=== PATIENT | male | born 1995 | race Caucasian/White ===

== ENCOUNTER 2021-06-19 22:14 | Outpatient (REF) | payer OTHER, SELFPAY ==
[2021-06-19 22:31] LABS: HCT 43.7 % (40.0-50.0); HGB 14.7 g/dL (13.5-17.5); MCH 29.9 pg (27.0-33.0); MCHC 33.6 % (32.0-36.0); MCV 88.8 fL (80-95); MPV 10.2 fL (8.0-11.0); Platelet Count 249 10^3/uL (130-400); RBC 4.92 10^6/uL (4.36-5.78); RDW 12.4 % (11.8-14.1); RDW-SD 40.3 fL; WBC 6.41 10^3/uL (4.4-10.8)
[2021-06-19 22:52] LABS: TSH (W/Ref FT4) 1.17 uIU/mL (0.36-3.74)
== END 2021-06-19 22:15 | disposition home or self-care (01) ==
LOC: NCHCN 22:14
PROVIDERS: PCP Physician Assistant Medical; Visit Provider Family Medicine
DX: F32.9 Major depressive disorder, single episode, unspecified (principal)
CPT/HCPCS: 85027; 84443

== ENCOUNTER 2022-09-03 11:21 | Emergency (ER) | payer MEDICAID, SELFPAY ==
[2022-09-03 11:29] VITALS: BP 136/82; PULSE 86; RESP 18; TEMP 36.4; O2SAT 100
--- NOTE | 2022-09-03 11:35 | W.ED.GENAD ---
Discharge Plan Disposition Patient Disposition: HOME Condition: Good Discharge Details Clinical Impression: Abrasion, corneal Primary Care Provider: Josh Li ED Provider: Cydney Benítez Discharge Instructions Additional Instructions: Your exam shows a corneal abrasion to the left eye. Please put 1cm of the erythromycin ointment into your left eye four times a day for the next 5 days. Tetanus updated today. [facility]. If ou develop fevers/chills, change in vision, discharge or other new/worsening symptoms, please seek care urgently once again. Referrals: [facility] [Outside] Josh Li [Primary Care Provider] - Discharge Data Discharge Date/Time-TO BE ENTERED AT DEPARTURE: 09/03/22 12:31 Medical Decision Making Patient is a pleasant 27 year old male presenting today with c/c of left eye FB sensation. He states that yesterday he was working with a [employer] saw, was wearing his normal corrective lenses, and a stick went under the glasses striking him in the eye. STates he washed the eye. Denies change in vision. Has had FB sensation and discomfort since. Unknown tetanus. States that after sleeping with bisi eye discomfort, eye was crusty this AM. Denies fevers/chills, visual change, persistent purulent drainage. On exam, patient appears nontoxic. No abnormality noted on initial exam, full ROM. No lesions to eye lid with eversion. Under slit lamp, with fluorosceine, able to visualize corneal abrasion as noted in PE section. Tetracaine completely releaved patient's discomfort and FB sensation. Negative Kaylene sign. No disruption in immediate field of vision. Discussed with patient. Will start on erythromycin ointmentt for coneal abrasion and concern for infection. Patient does not use contacts, has corrective lenses. 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 Tetanus unable to be found, will update today. Called [facility] who was able to see the patient in clinic tomorrow. Strict return precautions discussed. All of his question and concerns were addressed, he is in agreement with this plan. HPI General Date/Time Provider Initiated Documentation: 09/03/22 11:34. Limitations to Documentation: no limitations. Information obtained by: patient and RN notes reviewed. History of Present Illness 27 year old M presents to the emergency department with the chief complaint of left eye FB sensation, described as moderate, Quality is described as other (FB sensation, pain), and is localized to the eyes. Patient reports no radiation. Patient started experiencing this day(s) (1) and it has been constant. Medication improves symptom(s), (visine) No exacerbating factors reported . Patient notes no other symptoms.. Patient did receive the following treatments prior to arrival, other (visine) General Stated Complaint: EyeProblem GIN: 4 Review of Systems Constitutional Constitutional: Reports as per HPI, Denies chills, Denies fever(s) and Denies headache(s) Eyes Eyes: Reports as per HPI ENT Ears, Nose, Mouth, and Throat: Denies headache(s) Cardiovascular Cardiovascular: Reports as per HPI Respiratory Respiratory: Denies cough Integumentary/Breasts Skin/Breast: Reports as per HPI, Denies rash, Denies skin pain and Denies skin swelling Neurologic Neurologic: Denies headache(s) PFSH All Active Problems (Updated 09/03/22 @ 12:23 by TIGRE Elliott) Abrasion, corneal (Acute) Social History Smoking risk assessment performed?: No Drug use: Never Substance use type: does not use Do you feel safe at home: Yes Do you feel safe in your relationship?: Yes Exam Const General: cooperative, healthy appearing, comfortable, no acute distress, well developed and well groomed Nutritional Appearance: average body habitus and well nourished Orientation: alert, awake and oriented x3 HENMT Head: normal to inspection, normocephalic and atraumatic Ears: hearing grossly normal bilaterally and external ears normal General nose exam: external nose normal and nares normal Face and sinus: normal facial exam and face symmetric Mouth: oral mucosae normal, lip normal and moist mucous membranes Eyes General: appearance normal, both eyes and all related structures Visual Amin: normal visual amin by confrontation Alignment and Position: alignment normal and position normal Periorbital: periorbital findings normal Eyelids: eyelids normal (everted, no FB or laceration noted) Conjunctivae: conjunctivae normal Sclera: sclerae normal Cornea: corneas abnormal on the left fluorescein used and abrasion; without diffuse punctate uptake, without dendrites present, without edema, with no foreign body noted and without ulcerations and fluorescein used Pupils: PERRL EOM: EOM intact bilaterally Eyes/upper lids images: 1. corneal abrasion. Negative sidel sign. No retained FB. Resp Effort & Inspection: normal respiratory effort, able to speak in complete sentences and no respiratory distress Skin General skin exam: no rashes or lesions noted Neuro General: patient alert, patient awake and patient oriented x3 Cranial Nerves: CN's II-XI intact bilaterally Cognition: normal cognition Speech: speech normal Gait: normal gait Psych Appearance: grossly normal and well kempt Mental Status: mental status grossly normal Speech and Movement: speech and movement normal Course Vital Signs Vital signs: Vital Signs Temperature 36.4 C L 09/03/22 11:29 Pulse 86 09/03/22 11:29 Respiratory Rate 18 09/03/22 11:29 Blood Pressure 136/82 09/03/22 11:29 Pulse Oximetry 100 09/03/22 11:29 Temperature 36.4 C L 09/03/22 11:29 Temperature Source Temporal Artery Scan 09/03/22 11:29 Pulse 86 09/03/22 11:29 Respiratory Rate 18 09/03/22 11:29 Blood Pressure 136/82 09/03/22 11:29 Blood Pressure Position Sitting 09/03/22 11:29 Pulse Oximetry 100 09/03/22 11:29 Oxygen Delivery Method Room Air 09/03/22 11:29 Oxygen Flow Rate 0 09/03/22 11:29
[2022-09-03] MEDS: Tetracaine 0.5% 4 ML BTL OP (12:03)
[2022-09-03] MEDS: Fluorescein STRIPS 100/BOX 1 MG OP (12:03)
[2022-09-03] MEDS: Erythromycin Ophth Oint 3.5 GM TUBE OS (12:27)
== END 2022-09-03 12:31 | disposition home or self-care (01) ==
PROVIDERS: Emergency Provider Physician Assistant; PCP Family Medicine
DX: S05.02XA Injury of conjunctiva and corneal abrasion without foreign body, left eye, initial encounter (principal); Z23 Encounter for immunization; W22.8XXA Striking against or struck by other objects, initial encounter; Y93.89 Activity, other specified
CPT/HCPCS: 90471; 99283; 99284

== ENCOUNTER 2023-08-22 22:19 | Emergency (ER) | payer MEDICAID, SELFPAY ==
[2023-08-22 22:33] VITALS: BP 134/84; PULSE 82; RESP 16; TEMP 37.1; O2SAT 99
--- NOTE | 2023-08-22 22:47 | ED.GENADUL_ITS ---
Discharge Plan Disposition Patient Disposition: Home Condition: Good Discharge Details Chief Complaint: Headache Clinical Impression: Headache Primary Care Provider: Josh Li ED Provider: Louis Mendiola Home Meds and New Rx's Prescriptions: No Action No Known Home Meds Discharge Instructions Instructions: General Headache (ED) Additional Instructions: At this time your symptoms appear consistent with a migraine type headache. Please follow-up closely with your primary care provider for further discussion of potential nonemergent imaging. If you notice any worsening of your symptoms, or any new symptoms such as vomiting, diarrhea, fever, chills, shortness of breath, chest pain, numbness, weakness, or fainting , please return immediately to the emergency department for reevaluation. Please follow up with your primary care provider as soon as possible for reassessment and reevaluation. As always, it was a pleasure participating in your medical care today. Referrals: Josh Li [Primary Care Provider] - Medical Decision Making 28-year-old male with a past medical history of optical migraines who presents today for evaluation of headache. Patient states that he recently transition to night shifts, which is notably messed of his sleep schedule. He states that about a week or so ago he had an onset of one of his classic headaches that he used to get frequently in high school, started again a few hours ago. Usually goes away with NSAIDs and water, however it has not today. He describes it as a static like view in his right eye, with pain behind his eye that radiates to the back of his head and neck. Worse with bright lights. Improved by nothing. He denies any fever or chills. He had been uncertain vomiting. He denies any previous brain imaging. No other complaints at this time. The patient denies any headache red flags of worst headache of life, isabella nderclap headache, neck pain, fever, chills, concerning family history of polycystic kidney disease, Marfan syndrome, Narciso-Danlos syndrome, abdominal aortic aneurysm, aortic dissection, or intracranial aneurysm. Exam demonstrates well-appearing male, no nuchal rigidity. No neurologic deficits. Concern is for cluster or optical migraines. Symptoms appear clinically inconsistent with subarachnoid hemorrhage or meningitis. I did discuss imaging options for the patient and at this time through notable discussion, weighing the risks and benefits, and a shared decision making process the patient has refused imaging at this time. Patient is of an appropriate age to make decisions. The patient is of sound mind, appears clinically sober, and has capacity to make decisions by my clinical exam. Respecting the patient's wishes we will hold off on imaging. I did encourage the patient to pursue imaging on an outpatient basis as well. We will give migraine cocktail, gently rehydrate. Will give Toradol, Solu-Medrol, acetaminophen, Compazine, and Benadryl. Will monitor closely and reassess. 12:17 AM Patient feels much better, and headache has resolved. Patient feels well and would like to go home. Reassessment shows no evidence of neurologic deficit. No signs of meningitis. Patient will be discharged home. I have extensively reviewed the treatment plan and discharge instructions with the patient. I have addressed all patient concerns at this time. The patient was made aware of what symptoms to monitor for that would warrant a return to the emergency department. Discussed the plan with the patient, they demonstrate verbal understanding and agreement with our assessment and plan at this time. The documentation in this chart was dictated using [employer] dictation software. Please excuse any dictation errors. HPI General Date/Time Provider Initiated Documentation: 08/22/23 22:45 . HPI Narrative: 28-year-old male with a past medical history of optical migraines who presents today for evaluation of headache. Patient states that he recently cunha sition to night shifts, which is notably messed of his sleep schedule. He states that about a week or so ago he had an onset of one of his classic headaches that he used to get frequently in high school, started again a few hours ago. Usually goes away with NSAIDs and water, however it has not today. He describes it as a static like view in his right eye, with pain behind his eye that radiates to the back of his head and neck. Worse with bright lights. Improved by nothing. He denies any fever or chills. He had been uncertain vomiting. He denies any previous brain imaging. No other complaints at this time. The patient denies any headache red flags of worst headache of life, thunderclap headache, neck pain, fever, chills, concerning family history of polycystic kidney disease, Marfan syndrome, Narciso-Danlos syndrome, abdominal aortic aneurysm, aortic dissection, or intracranial aneurysm. Related Data Home Medications Medication Instructions Recorded Confirmed Unknown [No Known Home Meds] 08/22/23 08/22/23 Allergies Allergy/AdvReac Type Severity Reaction Status Date / Time No Known Allergies Allergy Unverified 08/22/23 22:38 General Stated Complaint: Headache GIN: 3 Review of Systems All systems reviewed & are unremarkable except as noted in HPI and below PFSH All Active Problems (Updated 08/23/23 @ 00:15 by Louis Mendiola DO) Headache (Acute) Social History Smoking risk assessment performed?: No Drug use: Never Substance use type: does not use Do you feel safe at home: Yes Do you feel safe in your relationship?: Yes Exam Narrative Exam Narrative: 1.Const: Well-nourished, Well-developed, appearing stated age 2.Eyes: PERRL, no conjunctival injection, and symmetrical lids. 3.ENT: Atraumatic external nose and ears. Moist MM. Neck: Symmetric, trachea midline, No thyromegaly. Patient demonstrates good movement of cervical neck. There is no nuchal rigidity, no nuchal tenderness. Patient is able to flex the neck without any difficulty or significant pain. Negative Kernig's and Brudzinski sign. 4.CVS: +S1/S2, No murmurs or gallops. Peripheral pulses 2+ and equal in all extremities. Brisk capillary refill in all extremities. 5.RESP: Unlabored respiratory effort. Clear to auscultation bilaterally. No wheezes rales or rhonchi 6.GI: Soft, Nontender/Nondistended, No hepatosplenomegaly. No guarding or rebound. 7.MSK: Normocephalic/Atraumatic, Extremities w/o deformity or ttp No cyanosis or clubbing, Normal movement of all extremities 8.Skin: Warm, Dry. No rashes or lesions. 9.Neuro: tank builder II-XII grossly intact. Sensation grossly intact, no focal neurologic deficits. All 6 cardinal planes of vision are fully intact. No evidence of rotatory or vertical nystagmus. The patient demonstrated a normal [id number], good dexterity. There was no evidence of dysdiadochokinesia. Patient was able to ambulate without difficulty. There was no wide-based gait. Romberg testing was normal. Foxf-yn-gugh testing was normal. Sensation was intact bilaterally as well as muscle strength bilaterally for all extremities. Patient was able to verbalize butter cup with no slurring, or miss pronunc iation. 10.Psych: (AAO) x3. Appropriate mood and affect Course Vital Signs Vital signs: Vital Signs Temperature 37.1 C 08/22/23 22:33 Pulse 82 08/22/23 22:33 Respiratory Rate 16 08/22/23 22:33 Blood Pressure 134/84 08/22/23 22:33 Pulse Oximetry 99 08/22/23 22:33 Temperature 37.1 C 08/22/23 22:33 Temperature Source Temporal Artery Scan 08/22/23 22:33 Pulse 82 08/22/23 22:33 Respiratory Rate 16 08/22/23 22:33 Respiratory Effort Normal 08/22/23 22:33 Blood Pressure 134/84 08/22/23 22:33 Blood Pressure Position Sitting 08/22/23 22:33 Pulse Oximetry 99 08/22/23 22:33 Oxygen Delivery Method Room Air 08/22/23 22:33 Oxygen Flow Rate 0 08/22/23 22:33 Pain Level 4 08/22/23 22:33
[2023-08-22] MEDS: Normal Saline 1,000 ML 1000 ML IV (22:55)
[2023-08-22] MEDS: methylPREDNISolone SUCC 125 MG VIAL IVP (22:59)
[2023-08-22] MEDS: Acetaminophen 500 MG TAB 1000 MG PO (22:59)
[2023-08-22] MEDS: Ketorolac 15 MG/ML VIAL IVP (23:00)
[2023-08-22] MEDS: Prochlorperazine 10 MG/2 ML VIAL IVP (23:00)
[2023-08-22] MEDS: diphenhydrAMINE 50 MG/ML VIAL 25 MG IVP (23:00)
[2023-08-23 00:21] VITALS: BP 145/72; PULSE 80; RESP 15; O2SAT 98
== END 2023-08-23 00:31 | disposition home or self-care (01) ==
PROVIDERS: Emergency Provider Student in an Organized Health Care Education/Training Program; PCP Family Medicine
DX: R51.9 Headache, unspecified
CPT/HCPCS: 96361; 96374; 96375; 99284; J0780; J1200; J1885; J2930